=== PATIENT | female | born 1950 | race Caucasian/White ===

== ENCOUNTER 2018-08-15 11:04 | Observation (INO) ==
--- NOTE | 2018-08-15 12:05 | Emergency Department Note ---
Disposition Clinical Impression: Uncontrolled hypertension Disposition: Still a Patient Referrals: Sangita Gomez DO [Primary Care Provider] - General Adult HPI - General Chief complaint: ED Nausea/Vomiting/Diarrhea Stated complaint: N/V MAGAÑA Time Seen by Provider: 08/15/18 11:20 Source: patient Limitations: no limitations Nursing Notes Reviewed: Yes Vital Signs Reviewed: Yes - History of Present Illness HPI Narrative: Attestation note: Patient was seen with the emergency medicine resident/nurse practitioner/physician hr assistant/transitional resident/medical student: Dr. Sussy Pacheco I have personally performed a face to face evaluation on this patient. I have reviewed and agree with history and physical examination patient management and disposition. Briefly the salient points of the case are as follows: 68-year-old female had difficulty for care nurse for self at home needs family members to help care for her as far as ADLs and medication regimen management presents here with vague symptoms of headache feeling poorly stomach cramps patient and take her blood pressure medication this morning her systolic was over 200 on arrival here physical examination was essentially benign. Patient thinks she has been having some burning urination for the past couple weeks. Patient will be getting a urinalysis. She will be getting dose of her medications here with observation. We anticipate disposition home with outpatient social media marketer consultation for consideration of convalescent care and/or home health care nursing. Disposition pending. Pain Scale: 8 - Related Data Allergies Allergy/AdvReac Type Severity Reaction Status Date / Time acetaminophen Allergy Vomiting Verified 12/19/15 10:53 [From Darvocet-N 100] Iodinated Contrast- Oral and Allergy Difficulty Verified 12/19/15 10:52 IV Dye Breathing oxycodone [From Percocet] Allergy Vomiting Verified 12/19/15 10:54 propoxyphene Allergy Vomiting Verified 12/19/15 10:53 [From Darvocet-N 100] Sulfa (Sulfonamide Allergy Rash Verified 12/19/15 10:51 Antibiotics) sulfamethoxazole Allergy Rash Verified 12/19/15 10:53 [From Bactrim] trimethoprim [From Bactrim] Allergy Rash Verified 12/19/15 10:53 Past Medical History - Past Medical History Medical history: Reports: CHF, COPD, diabetes, hypertension, renal disease, thyroid disease Psychiatric history: Reports: no psych history - Social History Smoking Status: Former smoker Smokeless Tobacco Status: No Alcohol use: Reports: none Drug use: Reports: none Physical Exam - General Limitations: no limitations General appearance: alert, anxious Course Vital Signs Temperature 97.6 F 08/15/18 11:12 Pulse Rate 82 08/15/18 11:12 Respiratory Rate 20 08/15/18 11:12 Blood Pressure 194/91 08/15/18 11:12 O2 Sat by Pulse Oximetry 93 08/15/18 11:12 Temperature 97.6 F 08/15/18 11:12 Pulse Rate 82 08/15/18 11:12 Respiratory Rate 20 08/15/18 11:12 Blood Pressure 194/91 08/15/18 11:12 O2 Sat by Pulse Oximetry 93 08/15/18 11:12 Oxygen Delivery Oxygen Delivery Room Air
[2018-08-15] MEDS ORDERED: cloNIDine HCl 0.1 MG TABLET PO ONE (12:10)
[2018-08-15] MEDS ORDERED: amLODIPine 5 MG TABLET PO SCH (12:15)
[2018-08-15] MEDS ORDERED: Lisinopril-HCTZ 20-12.5mg TABLET PO SCH (12:15)
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
[2018-08-15 12:45] LABS: Bilirubin,Urine Negative (Negative); Blood,Urine Negative (Negative); Clarity,Urine Clear (Clear); Color,Urine Yellow (Yellow); Glucose,Urine (UA) Normal (Normal); Ketones,Urine Negative (Negative); Leukocyte Esterase,Urine Negative (Negative); Nitrite,Urine Negative (Negative); Protein,Urine 30 mg/dL (Neg-Trace); Specific Gravity,Urine 1.013 (1.010-1.025); Urobilinogen,Urine Normal (Normal)
[2018-08-15 12:48] LABS: Bacteria,Urine None Seen per hpf (None-Few); Hyaline Casts,Urine None Seen per lpf (None-Few); RBC,Urine 0-3 per hpf (0-3); Squamous Epithelial Cell,Urine Moderate per lpf (None-Few)
[2018-08-15 14:03] LABS: Basophils # 0.1 K/mcL (0.0-0.2); Basophils % 0.6 %; Eosinophils # 0.1 K/mcL (0.0-0.6); Eosinophils % 1.3 %; Hemoglobin 11.8 g/dL (11.5-15.4); Immature Granulocytes % 0.3 % (0-4); Lymphocytes # 1.9 K/mcL (0.6-4.6); Lymphocytes % 17.9 %; Mean Corpuscular HGB Conc 31.9 g/dL (31.6-35.5); Mean Corpuscular Hemoglobin 28.8 pg (28.0-33.3); Mean Corpuscular Volume 90.2 fL (83.0-100.0); Monocytes # 0.6 K/mcL (0.0-1.3); Monocytes % 5.9 %; Platelet Count 251 K/mcL (140-400); Red Cell Distribution Width 14.6 % (11.5-14.5)
[2018-08-15 14:09] LABS: BUN/Creatinine Ratio 21 (6-26); Blood Urea Nitrogen 15 mg/dL (8-23); Calcium 9.4 mg/dL (8.6-10.3); Carbon Dioxide 29 mEq/L (23-29); Chloride 96 mEq/L (98-107); Glucose 127 mg/dL (70-105); Osmolality,Calculated 288 (280-300); Potassium 3.7 mEq/L (3.5-5.1); Sodium 138 mEq/L (136-145); eGFR For Non-African Americans > 60 (> 60)
--- NOTE | 2018-08-15 14:59 | Internal Med History&Physical ---
<Alejandra Coronado - Last Filed: 08/15/18 16:49> Date of Encounter: 08/15/18 Internal Medicine - H&P: HPI History of present illness: Ms. Barron is a 68 year old female Internal Medicine - H&P: Meds Aspirin [Lo-Dose Aspirin EC] 81 mg PO DAILY 08/15/18 [History] Atorvastatin [Lipitor] 40 mg PO HS 08/15/18 [History] Carvedilol [Coreg] 25 mg PO BID 08/15/18 [History] Divalproex Sodium 125 mg PO 08/15/18 [History] Divalproex Sodium 125 mg PO BID 08/15/18 [History] Levothyroxine Sodium [Levo-T] 50 mcg PO DAILY 08/15/18 [History] Lisinopril [Zestril] 20 mg PO DAILY 08/15/18 [History] Melatonin [Melatin] 3 mg PO HS PRN 08/15/18 [History] Multivitamin [One Daily Multivitamin] 1 tab PO DAILY 08/15/18 [History] OLANZapine [Zyprexa] 5 mg PO DAILY 08/15/18 [History] Pantoprazole Sodium 40 mg PO DAILY 08/15/18 [History] Venlafaxine HCl [Venlafaxine HCl ER] 75 mg PO DAILY 08/15/18 [History] cloNIDine HCl [Clonidine HCl] 0.2 mg PO TID 08/15/18 [History] metFORMIN [Glucophage] 500 mg PO TID 08/15/18 [History] Allergy/AdvReac Type Severity Reaction Status Date / Time acetaminophen Allergy Vomiting Verified 12/19/15 10:53 [From Darvocet-N 100] Iodinated Contrast- Oral and Allergy Difficulty Verified 12/19/15 10:52 IV Dye Breathing oxycodone [From Percocet] Allergy Vomiting Verified 12/19/15 10:54 propoxyphene Allergy Vomiting Verified 12/19/15 10:53 [From Darvocet-N 100] Sulfa (Sulfonamide Allergy Rash Verified 12/19/15 10:51 Antibiotics) sulfamethoxazole Allergy Rash Verified 12/19/15 10:53 [From Bactrim] trimethoprim [From Bactrim] Allergy Rash Verified 12/19/15 10:53 All Systems PM: A 10-system review of systems was performed and is negative for pertinent findings except as documented above in the HPI. - Constitutional Vitals: Temp Pulse Resp BP Pulse Ox 97.6 F 82 18 199/93 96 08/15/18 11:12 08/15/18 15:17 08/15/18 15:17 08/15/18 15:17 08/15/18 15:17 Internal Med - H&P Results - Labs CBC & Chem 7: 08/15/18 11:58 08/15/18 11:58 Labs: Short CBC 08/15/18 Range/Units 11:58 WBC 10.9 (4.3-11.1) K/mcL Hgb 11.8 (11.5-15.4) g/dL Hct 37.0 (35.3-44.9) % Plt Count 251 (140-400) K/mcL Neutrophils # 8.0 (1.6-8.9) K/mcL BMP 08/15/18 11:58 Sodium 138 Potassium 3.7 Chloride 96 L Carbon Dioxide 29 BUN 15 Creatinine 0.72 Glucose 127 H Calcium 9.4 Urine 08/15/18 Range/Units 12:33 Urine Color Yellow (Yellow) Urine Clarity Clear (Clear) Urine pH 7.0 (5.0-8.0) pH Units Ur Specific [place] 1.013 (1.010-1.025) Urine Protein 30 H (Neg-Trace) mg/dL Urine Glucose (UA) Normal (Normal) mg/dL - Impressions ITS Impressions Chest X-Ray 08/15/18 13:49 IMPRESSION: No evidence of acute cardiopulmonary disease. D/ / Veto Scales MD / Veto Scales MD Interpreting Provider: Veto Scales MD - Assessment and plan (1) COPD (chronic obstructive pulmonary disease) Current Visit: Yes Status: Chronic Qualifiers: COPD type: unspecified COPD Qualified Code(s): J44.9 - Chronic obstructive pulmonary disease, unspecified (2) Dysuria Current Visit: Yes Status: Acute (3) Hypertensive urgency Current Visit: Yes Status: Acute (4) Weakness Current Visit: Yes Status: Acute - Time Spent With Patient Total time spent is greater than 50% in coordination of care (as documented) at patient's floor/unit and/or counseling patient: - Attending Attestation I examined this patient and my medical decision-making was reviewed with the Resident Physician Dr Davis. I agree with the documented findings, disposition and treatment plan as described except to the extent set forth below. Ms Barron is being observed for hypertensive urgency She was elevated in ED and plan was for dc to home with daughter but daughter stated she cannot care for her at home and refused discharge per ED reporting. awake, pleasant, family has since gone home. She notes bp high for long time at home and discussed goal bp for overnight with pt voicing good understanding of plan. + floyd, no vision changes, no dizzy. Talkative and comfortable appearing. No chest pain, pressure or sob. No fevers or chills. She has chronic low back pain with hisotry of spinal srgery with "two rods in my back" and pain and trouble walking since then. Also had hammer toes left foot and had surgery after which foot got severely infected and she has had trouble with walking particularly with that foot since that time. Last fall was 3 weeks ago and "was bc of the side walk". She beleives she is on depakote at home for hx seizures. No paralysis, focal weakness. some hand/finger tingling. no lower extremity tingling. no change in speech, vision or swallowing RN at bedside. She will confirm diagnosis associated with depakote use with daughter gen- alert, awake,appears stated age, pleasant, calm, talkative eyes- pupils equal round , eom intact cv- reg rate and rhythm, normal s1,s2, no murmurs appreciated, no le edema lungs- ctabl, no wheezing, rhonchi or crackles, norm resp effort on room air neuro- AAOx3, CN grossly intact, no pronator drift, finger to nose intact bl, UE strength 4/4, LE strength 4/4, sensation to light touch intact and equal throughout extremities, no focal deficits HTN urgency- suspect non compliant with meds- cont home meds, added norvasc, up titrate, goal in next 24 hrs is 160/90, prn antihypertensive IV ekg personally reviewed- no st elevation or depression, nsr- trend trops Generalized weakness Hx back pain, back surgery, right foot surgery and ambulatory dysfunction -pt/ot, check tsh, otherwise labs are unremarkable and there is no suspected infectious process -pt notes if she required MRI she would refuse one bc she does not like them, she also has metal in her back per her report ?Seizre history- on depakote, check level, cont dose, confirm with family Also has multiple psychiatric meds- cont home dosing sw consult further diagnoses and plan as noted by resident <Sahil Davis - Last Filed: 08/15/18 17:11> Date of Encounter: 08/15/18 Time of Encounter: 15:21 Internal Medicine - H&P: HPI Chief complaint: Headache Admitted From: Emergency Dept Plans for Post Hospital Care: Home History of present illness: Ms. Barron is a 68 year old female with history of CHF, COPD, diabetes mellitus, hypertension, CK D, hypothyroidism who presented to the hospital with 5 day history of headache, nausea and weakness. She says that she has been having sinus pressure and headache for the past 5 days which has been generally unremitting. She says that in addition of that she has had generalized weakness and urinary frequency and burning. This started relatively insidiously and has been getting worse. The headache is generalized, global, and feels like a pressure. She has taken Tylenol but it does not seem to help. It does not seem to radiate anywhere. In addition that she is concerned that her blood pressure is been high. She has had a history of high blood pressures for quite some time, and she takes medicine for this as an outpatient however she apparently did not take her medication today. As result she says that she is having headache, tingling in her hands and generalized weakness. She says that this does tend happen when she forgets to take her medicines. She says that her blood pressures have been as high as 210/111 at home. In addition that she does say that she has been feeling chilled. She denies any fevers. She says that she does have some back pain. She has also had diarrhea about a week ago but she thinks it may be because she is been eating too much cheese. She otherwise has no acute complaints. In the ED, the patient did receive labs which were unremarkable in general, however she did have a blood pressure that was 194/91. Chest XR was also unremarkable. She was given her home BP meds and was initially told that outpatient follow-up may be the best option for, however her daughter expressed severe concerns that she may be unable to care for her at home. In addition of this she says that she feels that maybe her memory is not good, as she says that some of the information that she has told me is inaccurate compared to the information that she told other physicians in the same visit. Because of these concerns and because of her headache and relation to the blood pressure, we will admit the patient observation for hypertensive urgency. Past Med Surg Social Fam HX - Past Medical History Medical history: CHF, COPD, diabetes, hypertension, renal disease, thyroid disease Psychiatric history: no psych history - Past Surgical History Additional surgical history: 3 back surgeries - Social History Smoking Status: Former smoker Smokeless Tobacco Status: No Alcohol use: none Drug use: none - Family History Mother Family Member Ethnicity: Non- Living Status: Age at : 76 Cause of : unknown Hx Family Cardiac Disorders: Yes (Heart attack) Hx Family Neurologic Disorders: Yes (stroke) All Systems PM: A 10-system review of systems was performed and is negative for pertinent findings except as documented above in the HPI. Review of systems: Review of systems is obtained, however accuracy is in question due to the patient's mental status. Constitutional: Denies fevers, weight loss. Admits to chills and generalized fatigue Head/Neck: Denies neck stiffness. admits to headaches related to sinus pressure EENT: Denies vision changes/blurriness, rhinorrhea, congestion, sore throat CVS: Denies chest pain, palpitations, AQUINO, orthopnea, edema, PND Pulm: Denies cough, sputum, hemoptysis, wheezing. Admits to shortness of breath with exertion which is chronic GI: Denies abdominal pain, constipation, melena, hematemasis. Admits to nausea, some vomiting and some diarrhea : Denies increased frequency, urgency, hematuria. Admits to dysuria Heme: Denies ease of bleeding or bruising MSK: Denies joint pain, limited ROM Skin: Denies rashes, ulcers, color changes Neuro: Denies focal deficits, ataxia. Admits to headache and paresthesias in her hands - Constitutional Vitals: Temp Pulse Resp BP Pulse Ox 97.6 F 76 18 185/100 92 08/15/18 11:12 08/15/18 14:15 08/15/18 14:15 08/15/18 14:15 08/15/18 14:15 Exam: Gen: Vitals noted. No acute distress. Eyes: anicteric sclerae, moist conjunctivae; no lid-lag; Pupils equal and reactive to light HENT: Atraumatic; oropharynx clear with moist mucous membranes and no mucosal ulcerations; normal hard and soft palate. Tenderness to palpation of the frontal and maxillary sinuses bilaterally Neck: Trachea midline; supple, no thyromegaly or lymphadenopathy Cardiac: RRR, no murmur, +S1/S2 Pulmonary: Poor airway movement. CTA bilaterally, no wheezes, rales or rhonchi, equal chest expansion Abdomen: soft, nontender, no guarding. No masses or hepatosplenomegaly MSK: ROM intact, no joint swelling noted Extremities: Trace BLE edema, nontender calf, no cyanosis or clubbing Skin: Normal temperature, turgor and texture; no rash, ulcers or subcutaneous nodules Neuro: moves all extremities, no focal deficits. Psych: Appropriate mood and behavior. A&Ox3 Internal Med - H&P Results - Labs CBC & Chem 7: 08/15/18 11:58 08/15/18 11:58 Labs: Short CBC 08/15/18 Range/Units 11:58 WBC 10.9 (4.3-11.1) K/mcL Hgb 11.8 (11.5-15.4) g/dL Hct 37.0 (35.3-44.9) % Plt Count 251 (140-400) K/mcL Neutrophils # 8.0 (1.6-8.9) K/mcL BMP 08/15/18 11:58 Sodium 138 Potassium 3.7 Chloride 96 L Carbon Dioxide 29 BUN 15 Creatinine 0.72 Glucose 127 H Calcium 9.4 Urine 08/15/18 Range/Units 12:33 Urine Color Yellow (Yellow) Urine Clarity Clear (Clear) Urine pH 7.0 (5.0-8.0) pH Units Ur Specific [place] 1.013 (1.010-1.025) Urine Protein 30 H (Neg-Trace) mg/dL Urine Glucose (UA) Normal (Normal) mg/dL - Impressions ITS Impressions Chest X-Ray 08/15/18 13:49 IMPRESSION: No evidence of acute cardiopulmonary disease. D/ / Veto Scales MD / Veto Scales MD Interpreting Provider: Veto Scales MD - Assessment and plan (1) Hypertensive urgency Current Visit: Yes Status: Acute Assessment and plan: Hypertensive urgency, secondary to medication noncompliance Patient presented with blood pressure 194/91 Symptomatic with headache, paresthesias and hand, weakness Patient and daughter say that she has not taken her medication consistently According to daughter home meds include carvedilol, lisinopril, clonidine We will start home meds, admit to observation, monitor I will also check TSH, lipid panel Trend troponins Cardiac monitoring The patient had amlodipine listed as full med however patient's daughter says she was not taking it. She did receive 1 dose in the ER. We will monitor and see her response. (2) Weakness Current Visit: Yes Status: Acute Assessment and plan: Generalized weakness, onset over weeks Patient's daughter is concerned that she will be unable to care for her There does not appear to be an obvious metabolic or infectious etiology Additionally, examination is non-focal We will have PT/OT evaulate her (3) COPD (chronic obstructive pulmonary disease) Current Visit: Yes Status: Chronic Assessment and plan: COPD without acute exacerbation The patient does take albuterol nebulizer twice a day I will continue this during her admission Qualifiers: COPD type: unspecified COPD Qualified Code(s): J44.9 - Chronic obstructive pulmonary disease, unspecified (4) Seizure disorder Current Visit: No Status: Chronic Assessment and plan: Patient history of seizure disorder Currently taking depakote as home medication We will check a level, continue medication for now (5) Dysuria Current Visit: Yes Status: Acute Assessment and plan: Dysuria, not due to infection Likely secondary to bladder spasm We will bladder scan to rule out retention Likely requires outpatient follow-up and management - Time Spent With Patient Total time spent is greater than 50% in coordination of care (as documented) at patient's floor/unit and/or counseling patient:
[2018-08-15] MEDS ORDERED: Melatonin 3 MG TABLET PO PRN (16:35)
[2018-08-15] MEDS ORDERED: amLODIPine 5 MG TABLET PO ONE (17:00)
[2018-08-15] MEDS: Acetaminophen 325 MG TABLET PO PRN ×2 (18:54→23:47)
[2018-08-15] MEDS: *HR* Labetalol 20 MG/4 ML SYRINGE IVP PRN (19:02)
[2018-08-15] MEDS: Albuterol 2.5 MG/3 ML NEBULIZER IH PRN (21:32)
[2018-08-15] MEDS: *HR* Heparin 5,000 UNIT/ML VIAL SQ SCH (22:03)
[2018-08-15] MEDS: Divalproex Sodium 125 MG CAPSULE PO SCH (22:03)
[2018-08-15] MEDS: cloNIDine HCl 0.1 MG TABLET PO SCH (22:03)
[2018-08-16] MEDS: *HR* Heparin 5,000 UNIT/ML VIAL SQ SCH ×3 (06:31→20:34)
[2018-08-16 06:42] LABS: Alanine Aminotransferase 17 Units/L (7-52); Albumin 4.3 g/dL (3.5-5.7); Albumin/Globulin Ratio 1.4 (1.1-2.2); Alkaline Phosphatase 60 Units/L (34-104); Aspartate Amino Transferase 16 Units/L (13-39); BUN/Creatinine Ratio 27 (6-26); Bilirubin,Total 0.4 mg/dL (0.3-1.0); Blood Urea Nitrogen 17 mg/dL (8-23); Calcium 9.7 mg/dL (8.6-10.3); Carbon Dioxide 35 mEq/L (23-29); Chloride 97 mEq/L (98-107); Chol/HDL Ratio 3.7 (0-4.9); Cholesterol 125 mg/dL (< 200); Glucose 105 mg/dL (70-105); HDL Cholesterol 34 mg/dL (40-59); LDL Cholesterol,Calculated 68 mg/dL (0-99); Magnesium 1.3 mg/dL (1.6-2.6); Osmolality,Calculated 296 (280-300); Sodium 142 mEq/L (136-145); Total Protein 7.3 g/dL (6.4-8.9); Triglycerides 114 mg/dL (< 150); eGFR For Non-African Americans > 60 (> 60)
[2018-08-16 06:54] LABS: Thyroid Stimulating Hormone 4.608 mcIU/mL (0.340-5.600)
[2018-08-16] MEDS: *HR* Labetalol 20 MG/4 ML SYRINGE IVP PRN (06:55)
[2018-08-16] MEDS: Divalproex Sodium 125 MG CAPSULE PO SCH ×2 (08:31→20:34)
[2018-08-16] MEDS: Venlafaxine XR (24 HR) 75 MG CAP.ER.24H PO SCH (08:31)
[2018-08-16] MEDS: Aspirin Enteric Coated 81 MG Tablet PO SCH (08:31)
[2018-08-16] MEDS: Lisinopril 20 MG TABLET PO SCH (08:32)
[2018-08-16] MEDS: amLODIPine 5 MG TABLET PO SCH (08:32)
[2018-08-16] MEDS: cloNIDine HCl 0.1 MG TABLET PO SCH ×2 (08:32→20:33)
--- NOTE | 2018-08-16 08:49 | Internal Med Progress Note ---
<Alejandra Coronado - Last Filed: 08/16/18 10:31> Hospitalist Progress Note - Encounter Date of Encounter: 08/16/18 - Exam Vitals: Temp Pulse Resp BP Pulse Ox 97.7 F 69 16 195/71 90 08/16/18 06:51 08/16/18 06:51 08/16/18 06:51 08/16/18 06:51 08/16/18 06:51 - Assessment and Plan (1) COPD (chronic obstructive pulmonary disease) Current Visit: Yes Status: Chronic (2) Dysuria Current Visit: Yes Status: Acute (3) Hypertensive urgency Current Visit: Yes Status: Acute (4) Weakness Current Visit: Yes Status: Acute - Time Spent with Patient Total time spent is greater than 50% in coordination of care (as documented) at patient's floor/unit and/or counseling patient: Internal Medicine: Result - Labs CBC & Chem 7: 08/15/18 11:58 08/16/18 05:44 Labs: Short CBC 08/15/18 Range/Units 11:58 WBC 10.9 (4.3-11.1) K/mcL Hgb 11.8 (11.5-15.4) g/dL Hct 37.0 (35.3-44.9) % Plt Count 251 (140-400) K/mcL Neutrophils # 8.0 (1.6-8.9) K/mcL BMP 08/15/18 08/16/18 11:58 05:44 Sodium 138 142 Potassium 3.7 3.0 L Chloride 96 L 97 L Carbon Dioxide 29 35 H BUN 15 17 Creatinine 0.72 0.63 Glucose 127 H 105 Calcium 9.4 9.7 Cardiac Enzymes 08/15/18 08/15/18 08/16/18 Range/Units 17:14 22:50 05:44 Troponin I 0.03 0.03 0.04 H* (< 0.04) ng/mL Liver Function 08/16/18 Range/Units 05:44 Total Bilirubin 0.4 (0.3-1.0) mg/dL AST 16 (13-39) Units/L ALT 17 (7-52) Units/L Alkaline Phosphatase 60 (34-104) Units/L Albumin 4.3 (3.5-5.7) g/dL Urine 08/15/18 Range/Units 12:33 Urine Color Yellow (Yellow) Urine Clarity Clear (Clear) Urine pH 7.0 (5.0-8.0) pH Units Ur Specific [place] 1.013 (1.010-1.025) Urine Protein 30 H (Neg-Trace) mg/dL Urine Glucose (UA) Normal (Normal) mg/dL - Impressions Impressions Chest X-Ray 08/15/18 13:49 IMPRESSION: No evidence of acute cardiopulmonary disease. D/ / Veto Scales MD / Veto Scales MD Interpreting Provider: Veto Scales MD Consult Discharge Plan - Plan Referrals: Sangita Gomez DO [Primary Care Provider] - 08/23/18 4:15 pm (Please follow up as schedule...) - Attending Attestation I examined this patient and my medical decision-making was reviewed with the Resident Physician Dr Hansen. I agree with the documented findings, disposition and treatment plan as described except to the extent set forth below. Ms Barron is being observed for hypertensive urgency She was elevated in ED and plan was for dc to home with daughter but daughter stated she cannot care for her at home and declined discharge per ED reporting. asleep, awakes ot name. no family present. continued floyd, no vision changes, chest pain, pressure or sob. no weakness, paralysis, speech changes or numbness/tingling. gen- alert, awake,appears stated age eyes- pupils equal round cv- reg rate and rhythm, normal s1,s2, no murmurs appreciated, no le edema lungs- ctabl, no wheezing, rhonchi or crackles, norm resp effort on room air neuro- AAOx3, CN grossly intact, strength 4/4 throughout all ext, sensation to light touch intact and equal throughout extremities, no focal deficits HTN urgency- suspect non compliant with meds- cont home meds, added norvasc, up titrate, goal itoday is 160/90, prn antihypertensive IV Trop trend 0.03 to 0.04- asx, trend to peak, cont tele, repeat ekg Generalized weakness Hx back pain, back surgery, right foot surgery and ambulatory dysfunction -pt/ot -replete K and Mag -pt notes if she required MRI she would refuse one bc she does not like them, she also has metal in her back per her report No known seizure history as per daughter report to RN last evening -cont depakote, check level-remains pending, Also has multiple psychiatric meds- cont home dosing-? mental health history hypomagnesemia- replete IV Hypokalemia- replete cont to monitor, tele sw consult further diagnoses and plan as noted by resident <Shimon Hansen - Last Filed: 08/16/18 18:15> Hospitalist Progress Note - Encounter Date of Encounter: 08/16/18 Time of Encounter: 13:45 - Subjective Interval History: The patient is resting comfortably in bed at time of examination. She is sitting on the side of the bed using a breathing treatment. She says that today she is feeling significantly better than she was yesterday, however she is still having a headache. She says that she is taking Tylenol for this headache which has given her some relief. She is having no chest pains, shortness of breath, weakness and general. She does say that she spoke with the renal social worker and feels that maybe she will be able to go home with home health which she feels may be an adequate solution to her problems. She otherwise has no acute complaints today. - Exam Vitals: Temp Pulse Resp BP Pulse Ox 97.7 F 69 16 195/71 90 08/16/18 06:51 08/16/18 06:51 08/16/18 06:51 08/16/18 06:51 08/16/18 06:51 Exam: Gen: Well developed, well nourished female in no acute distress. Head: normocephalic and atraumatic Eyes: PERRL, EOMI, sclera anicteric, conjunctiva pink Neck: supple, trachea midline Heart: RRR +s1 +s2 no murmurs, clicks, or rubs Lungs: CTA bilaterally. Non-labored breathing. no wheezes, rales or rhonchi. GI: abdomen soft, nontender, non-distended Extremities: warm, peripheral pulses palpable and symmetrical. no edema or cyanosis Neuro: A&Ox3. no focal deficits. no speech difficulty or abnormality Skin: warm, dry, intact - Assessment and Plan (1) Hypertensive urgency Current Visit: Yes Status: Acute Assessment and Plan: Hypertensive urgency, secondary to medication noncompliance Presented with blood pressure 194/91, remains difficult to control despite home medications Symptomatic with headache, paresthesias and hand, weakness Started amlodipine 10 mg, Coreg 25 mg twice a day, clonidine 0.3 mg 3 times a day, lisinopril 20 mg daily Patients blood pressure remains high so we will increase clonidine to 0.4 mg 3 times a day Also have hydralazine 5 mg every hour and labetalol 5 mg every hour IV push when necessary We will likely increase lisinopril tomorrow as needed for goal systolic blood pressure 160/90 (2) Elevated troponin Current Visit: Yes Status: Acute Assessment and Plan: Elevated troponin this morning at 0.04 Although it is possible that this is due to hypertensive urgency, we did repeat an EKG today There are ST T changes in leads 1 and aVL as well as lead 2 which are unaccounted for an previous EKGs It is difficult to say whether this is due to ischemia versus lead placement We will repeat the EKG today, continue to trend troponins to peak If the EKG changes remain, we may consider a cardiac workup for this patient (3) Weakness Current Visit: Yes Status: Acute Assessment and Plan: Generalized weakness, gradual onset over weeks Patient's daughter is concerned that she will be unable to care for her There does not appear to be an obvious metabolic or infectious etiology Additionally, examination is non-focal PT/OT have seen and evaluated this patient, recommend Home health Social work is consulted to begin setting up (4) COPD (chronic obstructive pulmonary disease) Current Visit: Yes Status: Chronic Assessment and Plan: Not in acute exacerbation The patient does take albuterol nebulizer twice a day Continue this during her admission (5) Mood disorder Current Visit: No Status: Chronic Assessment and Plan: Suspected history of mood disorder Currently taking depakote as home medication along with other psychiatric medications Depakote level is currently pending however do not suspect overdose at this time (6) Dysuria Current Visit: Yes Status: Acute Assessment and Plan: Dysuria, not due to infection Likely secondary to bladder spasm We will bladder scan to rule out retention Likely requires outpatient follow-up and management DVT Prophylaxis: SQ Heparin - Time Spent with Patient Total time spent is greater than 50% in coordination of care (as documented) at patient's floor/unit and/or counseling patient: Internal Medicine: Result - Labs CBC & Chem 7: 08/15/18 11:58 08/16/18 05:44 Labs: Short CBC 08/15/18 Range/Units 11:58 WBC 10.9 (4.3-11.1) K/mcL Hgb 11.8 (11.5-15.4) g/dL Hct 37.0 (35.3-44.9) % Plt Count 251 (140-400) K/mcL Neutrophils # 8.0 (1.6-8.9) K/mcL BMP 08/15/18 08/16/18 11:58 05:44 Sodium 138 142 Potassium 3.7 3.0 L Chloride 96 L 97 L Carbon Dioxide 29 35 H BUN 15 17 Creatinine 0.72 0.63 Glucose 127 H 105 Calcium 9.4 9.7 Cardiac Enzymes 08/15/18 08/15/18 08/16/18 Range/Units 17:14 22:50 05:44 Troponin I 0.03 0.03 0.04 H* (< 0.04) ng/mL Liver Function 08/16/18 Range/Units 05:44 Total Bilirubin 0.4 (0.3-1.0) mg/dL AST 16 (13-39) Units/L ALT 17 (7-52) Units/L Alkaline Phosphatase 60 (34-104) Units/L Albumin 4.3 (3.5-5.7) g/dL Urine 08/15/18 Range/Units 12:33 Urine Color Yellow (Yellow) Urine Clarity Clear (Clear) Urine pH 7.0 (5.0-8.0) pH Units Ur Specific [place] 1.013 (1.010-1.025) Urine Protein 30 H (Neg-Trace) mg/dL Urine Glucose (UA) Normal (Normal) mg/dL - Impressions Impressions Chest X-Ray 08/15/18 13:49 IMPRESSION: No evidence of acute cardiopulmonary disease. D/ / Veto Scales MD / Veto Scales MD Interpreting Provider: Veto Scales MD ____ <Alejandra Coronado - Last Filed: 08/16/18 10:31> (1) COPD (chronic obstructive pulmonary disease) Qualifiers: COPD type: unspecified COPD Qualified Code(s): J44.9 - Chronic obstructive pulmonary disease, unspecified <Shimon Hansen - Last Filed: 08/16/18 18:15> (4) COPD (chronic obstructive pulmonary disease) Qualifiers: COPD type: unspecified COPD Qualified Code(s): J44.9 - Chronic obstructive pulmonary disease, unspecified
[2018-08-16] MEDS ORDERED: OLANZapine 5 MG TAB.RAPDIS PO SCH ×2 (09:00→21:00)
[2018-08-16 09:18] LABS: Estimated Average Glucose 146 mg/dl; Hemoglobin A1C 6.7 %
--- NOTE | 2018-08-16 13:16 | Electrocardiograph Report ---
[place] [id number] Test Date: 2018-08-16 Pat Name: Guadalupe Barron Department: 112 Room: 2A Gender: F Staff Toxicologist: : [id number] Requested By: Shimon Hansen Order Number: [id number] Reading MD: Ankit Lacy Measurements Intervals [place] Rate: 73 P: -21 LA: 135 QRS: -23 QRSD: 78 T: 152 QT: 402 QTc: 427 Interpretive Statements SINUS RHYTHM LVH WITH STRAIN POOR R WAVE PROGRESSION NONSPECIFIC T-WAVE ABNORMALITY Electronically Signed On 08-16-2018 13:14:49 EST by Ankit Lacy
[2018-08-16] MEDS ORDERED: cloNIDine HCl 0.1 MG TABLET PO SCH (15:00)
[2018-08-16] MEDS: Albuterol 2.5 MG/3 ML NEBULIZER IH PRN (21:14)
[2018-08-17] MEDS: *HR* Heparin 5,000 UNIT/ML VIAL SQ SCH ×2 (05:32→15:23)
[2018-08-17 07:07] LABS: Basophils # 0.1 K/mcL (0.0-0.2); Basophils % 0.8 %; Eosinophils # 0.5 K/mcL (0.0-0.6); Hematocrit 34.8 % (35.3-44.9); Hemoglobin 11.1 g/dL (11.5-15.4); Immature Granulocytes % 0.2 % (0-4); Lymphocytes # 3.6 K/mcL (0.6-4.6); Lymphocytes % 35.1 %; Mean Corpuscular HGB Conc 31.9 g/dL (31.6-35.5); Mean Corpuscular Hemoglobin 28.9 pg (28.0-33.3); Mean Corpuscular Volume 90.6 fL (83.0-100.0); Monocytes # 0.9 K/mcL (0.0-1.3); Monocytes % 8.9 %; Neutrophils # 5.1 K/mcL (1.6-8.9); Platelet Count 297 K/mcL (140-400); Red Blood Count 3.84 M/mcL (3.82-4.97); Red Cell Distribution Width 14.6 % (11.5-14.5)
[2018-08-17 07:22] LABS: BUN/Creatinine Ratio 29 (6-26); Blood Urea Nitrogen 19 mg/dL (8-23); Calcium 9.2 mg/dL (8.6-10.3); Carbon Dioxide 31 mEq/L (23-29); Chloride 100 mEq/L (98-107); Glucose 118 mg/dL (70-105); Osmolality,Calculated 291 (280-300); Potassium 3.5 mEq/L (3.5-5.1); Sodium 139 mEq/L (136-145); eGFR For Non-African Americans > 60 (> 60)
--- NOTE | 2018-08-17 07:46 | Internal Med Progress Note ---
Hospitalist Progress Note - Encounter Date of Encounter: 08/17/18 - Subjective Interval History: The patient is resting comfortably in bed at time of examination. She is sitting on the side of the bed using a breathing treatment. She says that today she is feeling significantly better than she was yesterday, however she is still having a headache. She says that she is taking Tylenol for this headache which has given her some relief. She is having no chest pains, shortness of breath, weakness and general. She does say that she spoke with the social professionals and feels that maybe she will be able to go home with home health which she feels may be an adequate solution to her problems. She otherwise has no acute complaints today. - Exam Vitals: Temp Pulse Resp BP Pulse Ox 98.6 F 76 18 152/80 91 08/17/18 06:59 08/17/18 06:59 08/17/18 06:59 08/17/18 06:59 08/17/18 06:59 - Assessment and Plan (1) Hypertensive urgency Current Visit: Yes Status: Acute (2) Elevated troponin Current Visit: Yes Status: Acute (3) Weakness Current Visit: Yes Status: Acute (4) COPD (chronic obstructive pulmonary disease) Current Visit: Yes Status: Chronic (5) Mood disorder Current Visit: No Status: Chronic (6) Dysuria Current Visit: Yes Status: Acute - Time Spent with Patient Total time spent is greater than 50% in coordination of care (as documented) at patient's floor/unit and/or counseling patient: Internal Medicine: Result - Labs CBC & Chem 7: 08/17/18 06:27 08/17/18 06:27 Labs: Short CBC 08/17/18 Range/Units 06:27 WBC 10.3 (4.3-11.1) K/mcL Hgb 11.1 L (11.5-15.4) g/dL Hct 34.8 L (35.3-44.9) % Plt Count 297 (140-400) K/mcL Neutrophils # 5.1 (1.6-8.9) K/mcL BMP 08/17/18 06:27 Sodium 139 Potassium 3.5 Chloride 100 Carbon Dioxide 31 H BUN 19 Creatinine 0.65 Glucose 118 H Calcium 9.2 Cardiac Enzymes 08/16/18 08/16/18 Range/Units 12:31 18:20 Troponin I 0.03 0.03 (< 0.04) ng/mL Consult Discharge Plan - Plan Referrals: Sangita Gomez DO [Primary Care Provider] - 08/23/18 4:15 pm (Please follow up as schedule...) (4) COPD (chronic obstructive pulmonary disease) Qualifiers: COPD type: unspecified COPD Qualified Code(s): J44.9 - Chronic obstructive pulmonary disease, unspecified
[2018-08-17 08:50] LABS: Magnesium 1.6 mg/dL (1.6-2.6)
[2018-08-17] MEDS: Lisinopril 20 MG TABLET PO SCH (09:57)
[2018-08-17] MEDS: Venlafaxine XR (24 HR) 75 MG CAP.ER.24H PO SCH (09:57)
[2018-08-17] MEDS: cloNIDine HCl 0.1 MG TABLET PO SCH ×2 (09:57→15:19)
[2018-08-17] MEDS: Divalproex Sodium 125 MG CAPSULE PO SCH (09:57)
[2018-08-17] MEDS: Aspirin Enteric Coated 81 MG Tablet PO SCH (09:57)
[2018-08-17] MEDS: amLODIPine 5 MG TABLET PO SCH (09:58)
--- NOTE | 2018-08-17 11:08 | Discharge Summary ---
<Alejandra Coronado - Last Filed: 08/17/18 13:56> - NOTES TO OUTPATIENT PROVIDER Notes to Outpatient Provider: She had medication changes for BP control and other home meds were continued. Her depakote level was checked and remains pendingat time of dc. defer to pcp to follow up and med dose adjust as needed. Orders not resulted at time of discharge: Pending orders 08/15/18 17:14 Valproate Total & Free Routine Date of Encounter: 08/17/18 - Discharge Diagnosis (1) COPD (chronic obstructive pulmonary disease) Status: Chronic Qualifiers: COPD type: unspecified COPD Qualified Code(s): J44.9 - Chronic obstructive pulmonary disease, unspecified (2) Dysuria Status: Acute (3) Hypertensive urgency Status: Acute (4) Weakness Status: Acute (5) Elevated troponin Status: Acute (6) Mood disorder Status: Chronic Hospital course: Ms. Barron is a 68 year old female - Time Spent with Patient Total time spent providing and/or coordinating discharge services: Greater than 30 minutes (40) - Discharge Medications Prescriptions: amLODIPine [Norvasc] 10 mg PO DAILY 30 Days #30 tablet cloNIDine HCl [Clonidine HCl] 0.4 mg PO TID 30 Days #90 tablet Home Medications: Aspirin [Lo-Dose Aspirin EC] 81 mg PO DAILY 08/15/18 [History] Atorvastatin [Lipitor] 40 mg PO HS 08/15/18 [History] Carvedilol [Coreg] 25 mg PO BID 08/15/18 [History] Divalproex Sodium 125 mg PO 08/15/18 [History] Divalproex Sodium 125 mg PO BID 08/15/18 [History] Levothyroxine Sodium [Levo-T] 50 mcg PO DAILY 08/15/18 [History] Lisinopril [Zestril] 20 mg PO DAILY 08/15/18 [History] Melatonin [Melatin] 3 mg PO HS PRN 08/15/18 [History] Multivitamin [One Daily Multivitamin] 1 tab PO DAILY 08/15/18 [History] OLANZapine [Zyprexa] 5 mg PO HS 08/15/18 [History] Pantoprazole Sodium 40 mg PO DAILY 08/15/18 [History] Venlafaxine HCl [Venlafaxine HCl ER] 75 mg PO DAILY 08/15/18 [History] metFORMIN [Glucophage] 500 mg PO TID 08/15/18 [History] amLODIPine [Norvasc] 10 mg PO DAILY 30 Days #30 tablet 08/17/18 [Rx] cloNIDine HCl [Clonidine HCl] 0.4 mg PO TID 30 Days #90 tablet 08/17/18 [Rx] Allergies/Adverse Reactions: Allergy/AdvReac Type Severity Reaction Status Date / Time Iodinated Contrast- Oral and Allergy Difficulty Verified 12/19/15 10:52 IV Dye Breathing oxycodone [From Percocet] Allergy Vomiting Verified 12/19/15 10:54 propoxyphene Allergy Vomiting Verified 12/19/15 10:53 [From Darvocet-N 100] Sulfa (Sulfonamide Allergy Rash Verified 12/19/15 10:51 Antibiotics) sulfamethoxazole Allergy Rash Verified 12/19/15 10:53 [From Bactrim] trimethoprim [From Bactrim] Allergy Rash Verified 12/19/15 10:53 Date of admission: 08/15/18 14:56 Primary care physician: Justin Smith Consults: 08/15/18 15:54 Consult to Physical Therapy [CONS] Routine Comment: Evaluate, develop and implement POC Reason for Consult: generalized weakness Does patient have active BEDREST order?: No Is patient medically & hemodynamically stable?: Yes OT [Consult to Occupational Therapy] [CONS] Routine Comment: Evaluate, develop and implement POC Reason for Consult: generalized weakness Does patient have active BEDREST order?: No Is patient medically & hemodynamically stable?: Yes 08/15/18 16:50 Consult to Collar Padder Blindstitch [CONS] Routine Reason for SW Consult: dispo planning - Constitutional Vitals: Temp Pulse Resp BP Pulse Ox 97.9 F 69 18 130/71 90 08/17/18 11:14 08/17/18 11:14 08/17/18 11:14 08/17/18 11:14 08/17/18 11:14 - Patient Status Disposition: Home Health Service Condition: Good Overall status at discharge: patient is back to baseline - Discharge Instructions Instructions: Clonidine (By mouth), Amlodipine (By mouth) Follow Up With: Sangita Gomez DO [Primary Care Provider] - 08/23/18 4:15 pm (Please follow up as schedule...) - Diet and Activity Activity: as per physical therapy - Attending Attestation I examined this patient and my medical decision-making was reviewed with the Resident Physician Dr Hansen. I agree with the documented findings, disposition and treatment plan as described except to the extent set forth below. Ms Barron is being observed for hypertensive urgency awake, pleasant, feeling well. no further headache. no pain, cp, palpitations, presyncope or numbness/tingling. happy to dc to home today. discussed dc plan and answered all questions. gen- alert, awake,appears stated age eyes- pupils equal round cv- reg rate and rhythm, normal s1,s2, no murmurs appreciated lungs- ctabl, no wheezing, rhonchi or crackles, norm resp effort on room air neuro- AAOx3, CN grossly intact, no focal deficits HTN urgency, resolved -cont current regimen on dc, outpt pcp fu Trop trend 0.03 to 0.04- asx, trended to peak, repeat ekg last evening was normal without any evidence of ischemia Generalized weakness,stable Hx back pain, back surgery, right foot surgery and ambulatory dysfunction -[facility] on dc for pt Mood disorder hx -cont depakote, checked level-remains pending at dc, pcp to follow for med dose adjustment prn, cont home meds hypomagnesemia- replete IV further diagnoses and plan as noted by resident dc to home TIME SPENT ON DC 40 MIN <Shimon Hansen - Last Filed: 08/17/18 18:36> - NOTES TO OUTPATIENT PROVIDER Notes to Outpatient Provider: Ms. Barron was admitted on 08/15/18 for nausea, vomiting, and headache. She was found to be in hypertensive urgery with BP of 194/91. Changes were made to home BP meds, including an increased of her Clonidine, and adding Amlodipine. At time of discharge, depakote level was still pending. Recommended pt follow up with her PCP for furher BP and medication management. Orders not resulted at time of discharge: Pending orders 08/15/18 17:14 Valproate Total & Free Routine Date of Encounter: 08/17/18 Time of Encounter: 08:45 - Discharge Diagnosis (1) Hypertensive urgency Priority: Primary Status: Acute Assessment and Plan: Hypertensive urgency, secondary to medication noncompliance Presented with blood pressure 194/91, remains difficult to control despite home medications Symptomatic with headache, paresthesias and hand, weakness Continue Coreg 25mg BID, Lisinopril 20mg, Amlodipine 10mg, and Clinidine 0.4mg TID on discharge To follow with PCP next week (2) Elevated troponin Priority: Secondary Status: Acute Assessment and Plan: Elevated troponin this morning at 0.04 Although it is possible that this is due to hypertensive urgency, we did repeat an EKG today There are ST T changes in leads 1 and aVL as well as lead 2 which are unaccounted for an previous EKGs Likely due to lead placement as immediate repeat EKG revealed no significant changes from previous EKGs Trop peak of 0.04 yesterday, trended to normal (3) Weakness Priority: Secondary Status: Acute Assessment and Plan: Generalized weakness, gradual onset over weeks Patient's daughter is concerned that she will be unable to care for her There does not appear to be an obvious metabolic or infectious etiology Additionally, examination is non-focal Home health with PT/OT (4) COPD (chronic obstructive pulmonary disease) Priority: Secondary Status: Chronic Assessment and Plan: Not in acute exacerbation The patient does take albuterol nebulizer twice a day Continue on discharge Qualifiers: COPD type: unspecified COPD Qualified Code(s): J44.9 - Chronic obstructive pulmonary disease, unspecified (5) Mood disorder Priority: Secondary Status: Chronic Assessment and Plan: Suspected history of mood disorder Currently taking depakote as home medication along with other psychiatric medications Depakote level is currently pending however do not suspect overdose at this time F/u at discharge (6) Dysuria Priority: Secondary Status: Acute Assessment and Plan: Dysuria, not due to infection Likely secondary to bladder spasm No urinary retention per post-void bladder scans Follow-up outpatient with pcp Hospital course: Ms. Barron is a 68 year old female who was admitted for hypertensive urgency. BP in ED was elevated at 194/91. Pt was complaining of nausea, vomiting, and headache. Labs and CXR were unremarkable. UA was grossly unremarkable. Suspect HTN due to non-compliance with home medications. HTN proved difficult to control while admitted. Required multiple doses of IV labetalol and hydralazine. At time of discharge, Amlodipine 10mg was added, and Clonidine was increased to 0.4mg TID. No changes to Coreg or Lisinopril at this time. Recommended pt follow up with her PCP shortly after discharge for further HTN and medication management. Discharge discussed with: patient, nurse - Time Spent with Patient Total time spent providing and/or coordinating discharge services: Greater than 30 minutes Date of admission: 08/15/18 14:56 Primary care physician: Justin Smith Consults: 08/15/18 15:54 Consult to Physical Therapy [CONS] Routine Comment: Evaluate, develop and implement POC Reason for Consult: generalized weakness Does patient have active BEDREST order?: No Is patient medically & hemodynamically stable?: Yes OT [Consult to Occupational Therapy] [CONS] Routine Comment: Evaluate, develop and implement POC Reason for Consult: generalized weakness Does patient have active BEDREST order?: No Is patient medically & hemodynamically stable?: Yes 08/15/18 16:50 Consult to Collar Padder Blindstitch [CONS] Routine Reason for SW Consult: dispo planning Discharging clinician: Shimon Hansen - Constitutional Vitals: Temp Pulse Resp BP Pulse Ox 98.6 F 76 18 152/80 91 08/17/18 06:59 08/17/18 06:59 08/17/18 06:59 08/17/18 06:59 08/17/18 06:59 General appearance: Present: cooperative, A&O X 3, no acute distress, obese, answers questions appropriately Exam: Gen: Well developed, well nourished female in no acute distress. Head: normocephalic and atraumatic Eyes: PERRL, EOMI, sclera anicteric, conjunctiva pink Neck: supple, trachea midline Heart: RRR +s1 +s2 no murmurs, clicks, or rubs Lungs: CTA bilaterally. Non-labored breathing. no wheezes, rales or rhonchi. GI: abdomen soft, nontender, non-distended Extremities: warm, peripheral pulses palpable and symmetrical. no edema or cyanosis Neuro: A&Ox3. no focal deficits. no speech difficulty or abnormality Skin: warm, dry, intact - Patient Status Functional capacity at discharge: independent ambulation Overall status at discharge: patient is back to baseline - Diet and Activity Activity: as per physical therapy, increase activity as tolerated, resume usual activities as tolerated Diet: low fat, low cholesterol, low salt diet
--- NOTE | 2018-08-17 14:00 | Physician Discharge Referral ---
<Shimon Hansen - Last Filed: 08/17/18 14:14> Home Health/Hosp Referral Info Transfer to: Home Health Provider in Charge Post Discharge: PCP - Diagnosis (1) Hypertensive urgency Priority: Primary Status: Acute (2) Elevated troponin Priority: Secondary Status: Acute (3) Weakness Priority: Secondary Status: Acute (4) COPD (chronic obstructive pulmonary disease) Priority: Secondary Status: Chronic (5) Mood disorder Priority: Secondary Status: Chronic (6) Dysuria Priority: Secondary Status: Acute - Respiratory Orders Smoking Cessation: Smoking cessation has been advised. For more information, call the [place] Tobacco Quit Line at 9-003-OUHH-NOW. - Diet/Nutrition Diet/Nutrition Orders: Cardiac - Activity Activity Orders: Up ad alina - Services Needed Following services are medically necessary services: Nursing, Home Health Aide, Physical Therapy, Occupational Therapy - Transfer Medications Prescriptions: amLODIPine [Norvasc] 10 mg PO DAILY 30 Days #30 tablet cloNIDine HCl [Clonidine HCl] 0.4 mg PO TID 30 Days #90 tablet Home Medications: Aspirin [Lo-Dose Aspirin EC] 81 mg PO DAILY 08/15/18 [History] Atorvastatin [Lipitor] 40 mg PO HS 08/15/18 [History] Carvedilol [Coreg] 25 mg PO BID 08/15/18 [History] Divalproex Sodium 125 mg PO 08/15/18 [History] Divalproex Sodium 125 mg PO BID 08/15/18 [History] Levothyroxine Sodium [Levo-T] 50 mcg PO DAILY 08/15/18 [History] Lisinopril [Zestril] 20 mg PO DAILY 08/15/18 [History] Melatonin [Melatin] 3 mg PO HS PRN 08/15/18 [History] Multivitamin [One Daily Multivitamin] 1 tab PO DAILY 08/15/18 [History] OLANZapine [Zyprexa] 5 mg PO HS 08/15/18 [History] Pantoprazole Sodium 40 mg PO DAILY 08/15/18 [History] Venlafaxine HCl [Venlafaxine HCl ER] 75 mg PO DAILY 08/15/18 [History] metFORMIN [Glucophage] 500 mg PO TID 08/15/18 [History] amLODIPine [Norvasc] 10 mg PO DAILY 30 Days #30 tablet 08/17/18 [Rx] cloNIDine HCl [Clonidine HCl] 0.4 mg PO TID 30 Days #90 tablet 08/17/18 [Rx] Allergies/Adverse Reactions: Allergy/AdvReac Type Severity Reaction Status Date / Time Iodinated Contrast- Oral and Allergy Difficulty Verified 12/19/15 10:52 IV Dye Breathing oxycodone [From Percocet] Allergy Vomiting Verified 12/19/15 10:54 propoxyphene Allergy Vomiting Verified 12/19/15 10:53 [From Darvocet-N 100] Sulfa (Sulfonamide Allergy Rash Verified 12/19/15 10:51 Antibiotics) sulfamethoxazole Allergy Rash Verified 12/19/15 10:53 [From Bactrim] trimethoprim [From Bactrim] Allergy Rash Verified 12/19/15 10:53 Certification: Further, I certify that my clinical findings support that this patient is homebound (i.e. absences from home require considerable and taxing effort and are for medical reasons or gnosticism services or infrequently or short duration when for other reasons) because: Homebound Reason: Patient requires assistance of a person or device to safely leave home, Leaving home requires considerable and taxing effort due to condition Attestation: My signature below is to certify that this patient is under my care and that I, or nurse practitioner, or a physician's assistant property manager working with me, has a [id number] encounter with this patient. <Alejandra Coronado - Last Filed: 08/17/18 15:11> - Diagnosis (1) COPD (chronic obstructive pulmonary disease) Status: Chronic (2) Dysuria Status: Acute (3) Hypertensive urgency Status: Acute (4) Weakness Status: Acute (5) Elevated troponin Status: Acute (6) Mood disorder Status: Chronic - Respiratory Orders None Smoking Cessation: Smoking cessation has been advised. For more information, call the [place] Tobacco Quit Line at 2-295-SJNF-NOW. - Diet/Nutrition Diet/Nutrition Orders: Cardiac, No Concentrated Sweets Certification: Further, I certify that my clinical findings support that this patient is homebound (i.e. absences from home require considerable and taxing effort and are for medical reasons or gnosticism services or infrequently or short duration when for other reasons) because: Attestation: My signature below is to certify that this patient is under my care and that I, or nurse practitioner, or a physician's assistant property manager working with me, has a [id number] encounter with this patient.
[2018-08-17 15:20] VITALS: BP 160/80
--- NOTE | 2018-08-17 17:02 | Electrocardiograph Report ---
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
--- NOTE | 2018-08-17 18:53 | Electrocardiograph Report ---
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
[2018-08-18 01:45] LABS: Valproate Free <7 ug/mL (7-23); Valproate Total 12 ug/mL (50-125)
== END 2018-08-17 16:00 | disposition home health service (06) ==
LOC: EMEROOARM 11:04 → 2ANU 11:04 → SUATTDRO 14:56 → 2ANU 16:17
PROVIDERS: ADMIT Internal Medicine; ATTEND Internal Medicine